=== PATIENT | female | born 1960 | race American Indian/Alaskan Native ===

== ENCOUNTER 2022-03-15 19:19 | Emergency (ER) | payer MEDICARE ==
[2022-03-16] MEDS ORDERED: TETANUS,DIPH,PERTUSS(ACELL) VACCINE 0.5 ML SYRINGE IM ONE (10:00)
--- NOTE | 2022-03-16 10:15 | Emergency Department Report ---
Upper Extremity - HPI Chief Complaint: Extremity Injury, Upper Stated Complaint: INJURY TO LEFT FINGER Upper Extremity: Left Ring Finger Occurred When: 1 Day Mechanism: Crush Symptoms: Yes Pain with Movement, Yes Swelling, Yes Laceration or Abrasion, No Deformity, No Limited Range of Movement, No Numbness, No Weakness, No Bruising/Ecchymosis Other History: 61-year-old female presents to the ED complaining left ring finger pain. Patient states that she was attempting to follow-up with her child when she accidentally crushed her ring finger in between the wheelchair causing a abrasion to the nailbed x 1 day ago. Mild edema noted. No obvious deformity noted. No distracting injury noted. Patient able to move extremity without difficulty. Denies any numbness or tingling at present time. Bleeding is controlled with a bandage. No acute distress noted. no ill appearance noted. ED Review of Systems ROS: Stated complaint: INJURY TO LEFT FINGER Other details as noted in HPI Constitutional: denies: chills, fever Eyes: denies: eye pain, eye discharge, vision change ENT: denies: ear pain, throat pain Respiratory: denies: cough, shortness of breath, wheezing Cardiovascular: denies: chest pain, palpitations Endocrine: no symptoms reported Gastrointestinal: denies: abdominal pain, nausea, diarrhea Genitourinary: denies: urgency, dysuria, discharge Musculoskeletal: joint swelling. denies: back pain, arthralgia Skin: other (abrasion). denies: rash, lesions Neurological: denies: headache, weakness, paresthesias Psychiatric: denies: anxiety, depression Hematological/Lymphatic: denies: easy bleeding, easy bruising ED Past Medical Hx - Past Medical History Hx Psychiatric Treatment: Yes - Surgical History Additional Surgical History: R. Ankle repair - Social History Smoking Status: Current Every Day Smoker Substance Use Type: None - Medications Home Medications: Home Medications Medication Instructions Recorded Confirmed Last Taken Type Naproxen [Naprosyn TAB] 375 mg PO BID #30 tablet 02/11/16 Unknown Rx Upper Extremity Exam - Exam General: Vital signs noted. No distress. Alert and acting appropriately. Head and Torso: No HEENT Abnormality, No Neck Tenderness, No Chest/Lungs Abnormality, No Abdominal Tenderness, No Back Tenderness Shoulder Exam: Yes Normal Range of Motion in Shoulder, No Shoulder Tenderness, No Clavicle Tenderness, No Shoulder Deformity, No AC Joint Tenderness Arm Exam: No Arm/Humerus Tenderness, No Arm Deformity Elbow: No Elbow Tenderness, No Normal Range of Motion in Elbow, No Elbow Deformity Forearm: No Forearm Tenderness, No Forearm Deformity, No Pain with Pronation, No Pain with Supination Wrist: Yes Normal ROM in Wrist, No Wrist Tenderness, No Wrist Deformity, No Snuffbox Tenderness, No Pain with Axial Thumb Compression Hand: Yes Normal ROM in Digit(s), No Hand Tenderness, No Hand Deformity, No Digit Tenderness, No Digit(s) Deformity, No Tendon Dysfunction CMS Exam: No Broken Skin, No Normal Distal Pulses, No Normal Capillary Refill, No Normal Distal Sensation ED Course Vital Signs 03/15/22 19:51 Temperature 98.5 F Pulse Rate 94 H Respiratory 16 Rate Blood Pressure 185/99 [Right] O2 Sat by Pulse 100 Oximetry ED Medical Decision Making - Radiology Data [facility] [address] [place] [address] XRay Report Signed Patient: CAYLA SÁNCHEZ MR#: [id number] : 1960 Acct:[id number] Age/Sex: 61 / F ADM Date: 03/15/22 Loc: ED Attending Dr: Ordering Physician: TIFFANIE RIOJAS Date of Service: 03/16/22 Procedure(s): XR hand 2V LT Accession Number(s): [id number] cc: TIFFANIE RIOJAS Fluoro Time In Minutes: Left hand 2 views INDICATION: Finger injury FINDINGS: There is a fracture with mild displacement within the distal phalanx of the ring finger. Overlying soft tissue swelling and edema. PIP joints and MCP joints appear normal. Signer Name: Iraj Simpson MD Signed: 03/16/2022 11:03 AM Workstation Name: [id number] Transcribed By: CW Dictated By: KAROLYN SIMPSON MD Electronically Authenticated By: KAROLYN SIMPSON MD Signed Date/Time: 03/16/221102 DD/ 01 TD/TT: - Medical Decision Making 61-year-old female presents to the ED complaining left ring finger pain. Patient states that she was attempting to follow-up with her child when she accidentally crushed her ring finger in between the wheelchair causing a abrasion to the nailbed x 1 day ago. Mild edema noted. No obvious deformity noted. No distracting injury noted. Patient able to move extremity without difficulty. Denies any numbness or tingling at present time. Bleeding is controlled with a bandage. No acute distress noted. no ill appearance noted. Physical examination patient has has abrasion with mild edema noted to the DIP of the left ring finger. Left hand x-rays show mildly displaced fracture at the distal phalanx. Dressing applied to wound. Finger splint placed to the left finger. Rechecked the patient is resting quietly quietly and comfortable and feeling better. I discussed the results of diagnostic study, my clinical impression and the plan for further treatment with the patient. Patient agrees with plan and discharge at this present time. All question addressed. I have given the patient instruction regarding a diagnosis ,expectation ,follow- up and return precaution. I explained to the patient that emergent condition may arise and to return to the ED for new worsen and any new persisting condition. I have explained the importance of following up with the primary care physician or referral physician listed below has instructed. The patient verbalized understanding of discharge instruction. Critical care attestation.: If time is entered above; I have spent that time in minutes in the direct care of this critically ill patient, excluding procedure time. ED Disposition Clinical Impression: Finger fracture, left Qualifiers: Encounter type: initial encounter Finger: ring finger Fracture type: closed Phalanx: distal Fracture alignment: displaced Qualified Code(s): S62.635A - Displaced fracture of distal phalanx of left ring finger, initial encounter for closed fracture Disposition: HOME / SELF CARE / HOMELESS Is pt being admited?: No Does the pt Need Aspirin: No Condition: Stable Instructions: Finger Fracture, Adult Additional Instructions: Do not remove splint Return to ED for any worsening symptom Referrals: DEJA HENDRICKSON MD [Primary Care Provider] - 3-5 Days
--- NOTE | 2022-03-16 11:07 | XRay Report ---
Left hand 2 views INDICATION: Finger injury FINDINGS: There is a fracture with mild displacement within the distal phalanx of the ring finger. Ov erlying soft tissue swelling and edema. PIP joints and MCP joints appear normal. Signer Name: Iraj Simpson MD Signed: 03/16/2022 11:03 AM Workstation Name: [id number]
[2022-03-16 12:14] VITALS: BP 143/89
== END 2022-03-16 12:14 | disposition home or self-care (01) ==
LOC: ED 19:19
DX: S62.605A Fracture of unspecified phalanx of left ring finger, initial encounter for closed fracture (principal); X58.XXXA Exposure to other specified factors, initial encounter; Y93.89 Activity, other specified; Y92.89 Other specified places as the place of occurrence of the external cause; Y99.8 Other external cause status
CPT/HCPCS: 90471; 90715; 99283